=== PATIENT | male | born 1965 | race Hispanic/Latino ===

== ENCOUNTER 2017-07-30 18:51 | Emergency (ER) | payer OTHER ==
[2017-07-30] MEDS ORDERED: Sodium Chloride 0.9% 1,000 ML IV STA (19:19)
[2017-07-30] MEDS ORDERED: Albuterol 0.083% Inhal Sol (2.5 mg/3 mL) UD INH STA (19:20)
--- NOTE | 2017-07-30 19:24 | ED PDOC ---
HPI: Chest Pain Chief Complaint (Provider): Cough, Body Aches, Chest Tightness History Per: Patient History/Exam Limitations: no limitations Onset/Duration Of Symptoms: Days (x 2) Current Symptoms Are (Timing): Still Present Quality: Tightness <Nick Bright - Last Filed: 07/30/17 20:31> <Keerthi Mar - Last Filed: 07/30/17 22:00> Time Seen by Provider: 07/30/17 19:19 Chief Complaint (Nursing): Flu-like Symptoms Additional Complaint(s): Jeremiah is a 52 y/o male who presents to the ED complaining of cough, body aches , and a low grade temperature for the past 2 days. Patient states that since 11am today, he has also had intermittent chest tightness and is unsure if it is associated with the cough. He denies smoking, but states his brother had an DE at age 49. PMD: Ulysses Blue (Nick Bright) Past Medical History Reviewed: Historical Data, Nursing Documentation, Vital Signs - Medical History PMH: Hyperlipidemia, Kidney Stones - Family History Family History: States: [place] (brother, age 49) - Immunization History Hx Tetanus Toxoid Vaccination: No Hx Influenza Vaccination: No Hx Pneumococcal Vaccination: No <Nick Bright - Last Filed: 07/30/17 20:31> <Keerthi Mar - Last Filed: 07/30/17 22:00> Vital Signs: Last Vital Signs Temp 98.9 F 07/30/17 20:49 Pulse 109 H 07/30/17 20:49 Resp 20 07/30/17 20:49 BP 132/85 07/30/17 20:49 Pulse Ox 97 07/30/17 20:49 - Home Medications Home Medications: Ambulatory Orders Medication Instructions Recorded Lamisil 250 mg PO DAILY 11/15/14 Tamsulosin [Flomax] 0.4 mg PO DAILY #10 cap 11/15/14 oxyCODONE/Acetaminophen [Percocet 1 tab PO Q4 PRN #20 tab 11/15/14 5/325 mg Tab] - Allergies Allergies/Adverse Reactions: Allergies Allergy/AdvReac Type Severity Reaction Status Date / Time ibuprofen Allergy REDNESS Verified 07/30/17 19:06 Review of Systems ROS Statement: Except As Marked, All Systems Reviewed And Found Negative Constitutional: Positive for: Fever (low-grade), Other (body aches) Cardiovascular: Positive for: Chest Pain (tightness) Respiratory: Positive for: Cough <Nick Bright - Last Filed: 07/30/17 20:31> Physical Exam - Reviewed Nursing Documentation Reviewed: Yes Vital Signs Reviewed: Yes - Physical Exam Appears: Positive for: Well, Non-toxic, No Acute Distress Cardiovascular/Chest: Positive for: Regular Rate, Rhythm Respiratory: Positive for: CNT, Normal Breath Sounds Neurologic/Psych: Positive for: Alert, Oriented <Nick Bright - Last Filed: 07/30/17 20:31> - Laboratory Results Result Diagrams: 07/30/17 19:58 07/30/17 19:58 - ECG ECG: Positive for: Interpreted By Me, Viewed By Me ECG Rhythm: Positive for: Sinus Tachycardia. Negative for: ST/T Changes Rate: 104 (bpm) O2 Sat by Pulse Oximetry: 98 (RA) Pulse Ox Interpretation: Normal <Nick Bright - Last Filed: 07/30/17 20:31> - Laboratory Results Result Diagrams: 07/30/17 19:58 07/30/17 19:58 <Keerthi Mar - Last Filed: 07/30/17 22:00> - ECG Interpretation Of ECG: no ectopy (Nick Bright) - Progress ED Course And Treament: ASA 324 mg x 1 dose ordered Case endorsed to Dr. Mar (Nick Bright) Medical Decision Making <Nick Bright - Last Filed: 07/30/17 20:31> <Keerthi Mar - Last Filed: 07/30/17 22:00> Medical Decision Making: Time: 19:19 Initial Impression: Flu-Like Symptoms, Chest Tightness Initial Plan: --EKG --CMP --Troponin --CBC --Chest XR --Albuterol --Aspirin --Tamiflu --Flu Swab Time: 19:30 --EKG sinus tachycardia at 104 bpm, no ectopy, no acute changes --Case discussed with Dr. Mar who agrees with plan to put patient on a heart monitor Flu Swab: Negative Scribe Attestation: Documented by Iain Ornelas, acting as a scribe for Nick Bright PA-C Provider Scribe Attestation: All medical record entries made by the Scribe were at my direction and personally dictated by me. I have reviewed the chart and agree that the record accurately reflects my personal performance of the history, physical exam, medical decision making, and the department course for this patient. I have also personally directed, reviewed, and agree with the discharge instructions and disposition. (Nick Bright) Rec'd endorsement from Nick Pt with flu-like symptoms pending ER workup EXAM: XR Chest, 2 Views CLINICAL HISTORY: 52 years old, male; Signs and symptoms; Cough; Symptoms not specified; Additional info: Cough/chest joyce TECHNIQUE: Frontal and lateral views of the chest. COMPARISON: No relevant prior studies available. FINDINGS: Lungs: Minimal patchy opacity left lung base. Minimal subsegmental atelectasis/ scarring. Pleural space: No pleural effusion. No pneumothorax. Heart: No cardiomegaly. Mediastinum: Unremarkable. Bones/joints: Mild degenerative changes of spine. No acute fracture. IMPRESSION: 1. Left basilar atelectasis versus early pneumonia. 2. Incidental/non-acute findings are described above. Thank you for allowing us to participate in the care of your patient. Dictated and Authenticated by: Lance Whiteside MD 07/30/2017 9:27 PM Eastern Time ([place] & [place]) Labs unremarkable. (Keerthi Mar) Disposition - Patient ED Disposition Is Patient to be Admitted: Transfer of Care - Disposition Disposition: Transfer of Care Disposition Time: 19:30 Patient Signed Over To: Keerthi Mar Handoff Comments: pending bloodwork/cxr/flu swab results <Nick Bright - Last Filed: 07/30/17 20:31> <Keerthi Mar - Last Filed: 07/30/17 22:00> - Clinical Impression Clinical Impression: Influenza-like symptoms, Chest pain - Disposition Condition: FAIR Forms: [facility] (Emirati)
[2017-07-30] MEDS ORDERED: Albuterol 0.083% Inhal Sol (2.5 mg/3 mL) UD ONE (19:38)
[2017-07-30 20:03] LABS: BASO # 0.1 K/uL (0.0-0.2); BASO % 0.9 % (0.0-2.0); EOS # 0.3 K/uL (0.0-0.7); HEMOGLOBIN 14.4 g/dL (12.0-18.0); LYMPH # 1.8 K/uL (1.0-4.3); LYMPH % 25.3 % (20.0-40.0); MEAN CELL VOLUME 86.7 fl (80.0-94.0); MEAN CORPUSCULAR HEMOGLOBIN 28.9 pg (27.0-31.0); MEAN CORPUSCULAR HGB CONC 33.3 g/dL (33.0-37.0); MEAN PLATELET VOLUME 6.5 fl (7.2-11.7); MONO # 1.1 K/uL (0.0-0.8); MONO % 15.8 % (0.0-10.0); NEUT # 3.8 K/uL (1.8-7.0); RBC 4.99 Mil/uL (4.40-5.90); RED CELL DISTRIBUTION WIDTH 13.5 % (11.5-14.5)
[2017-07-30 20:17] LABS: ALB/GLOB RATIO 1.4 (1.0-2.1); ALBUMIN 4.5 g/dL (3.5-5.0); ALT/SGPT 36 U/L (21-72); AST/SGOT 31 U/L (17-59); BLOOD UREA NITROGEN 17 mg/dl (9-20); CALCIUM 9.3 mg/dL (8.4-10.2); GFR AFRICAN-AMERICAN > 60; GFR NON-AFRICAN AMERICAN > 60
[2017-07-30 20:50] VITALS: BP 132/85; PULSE 109; RESP 20; TEMP 98.9; O2SAT 97
--- NOTE | 2017-07-30 21:28 | RAD ---
EXAM: XR Chest, 2 Views CLINICAL HISTORY: 52 years old, male; Signs and symptoms; Cough; Symptoms not specified; Additional info: Cough/chest joyce TECHNIQUE: Frontal and lateral views of the chest. COMPARISON: No relevant prior studies available. FINDINGS: Lungs: Minimal patchy opacity left lung base. Minimal subsegmental atelectasis/scarring. Pleural space: No pleural effusion. No pneumothorax. Heart: No cardiomegaly. Mediastinum: Unremarkable. Bones/joints: Mild degenerative changes of spine. No acute fracture. IMPRESSION: 1. Left basilar atelectasis versus early pneumonia. 2. Incidental/non-acute findings are described above.
[2017-07-30] MEDS ORDERED: levoFLOXacin 750 mg in D5W 150 ML BAG IVPB STA (22:00)
--- NOTE | 2017-07-31 10:47 | CARD ---
APPROVED REPORT EKG Measurement Heart [id number] <Conclusion> Sinus tachycardia Otherwise normal ECG
== END 2017-07-30 23:57 | disposition home or self-care (01) ==
LOC: H.ER 18:51
DX: R07.89 Other chest pain (principal); R05 Cough; E78.5 Hyperlipidemia, unspecified; Z82.49 Family history of ischemic heart disease and other diseases of the circulatory system
CPT/HCPCS: 71046; 80053; 84484; 85025; 87804; 93005; 94150; 94640; 96365; 99284; J7040

== ENCOUNTER 2017-11-19 21:55 | Emergency (ER) | payer OTHER ==
--- NOTE | 2017-11-19 23:47 | ED PDOC ---
Lower Extremity Pain/Injury Time Seen by Provider: 11/19/17 22:25 Chief Complaint (Nursing): Lower Extremity Problem/Injury Chief Complaint (Provider): Knee Pain History Per: Patient History/Exam Limitations: no limitations Onset/Duration Of Symptoms: Hrs (x6) Current Symptoms Are (Timing): Still Present Severity: Moderate Pain Scale Rating Of: 7 Additional Complaint(s): Patient is a 52 year old male who presents to ED for evaluation of atraumatic right knee pain for the past 6 hours. Patient states that he was seated at work and went to stand up when he felt a sudden onset of pain to the inside of the right knee. Patient states since onset, he has had swelling to the knee and difficulty ambulating. Patient denies any history of knee injury and denies hearing a "pop". Patient took no medication prior to arrival in ED. Patient denies any history of knee injury, personal or family history of DVT, gout, or falls. Also denies: fever, abdominal pain, nausea, vomiting, chest pain, SOB, palpitations, headache, dizziness, weakness/numbness, calf pain. Patient reports a recent flight from [place] on 11/15/17. PMD: Mirza Past Medical History Reviewed: Historical Data, Nursing Documentation, Vital Signs Vital Signs: Last Vital Signs Temp 98.5 F 11/19/17 22:21 Pulse 98 H 11/19/17 22:21 Resp 16 11/19/17 22:21 BP 123/83 11/19/17 22:21 Pulse Ox 98 11/19/17 22:21 - Medical History PMH: Hyperlipidemia, Kidney Stones - Surgical History Surgical History: Cholecystectomy - Family History Family History: States: [place] (brother, age 49) - Social History Current smoker - smoking cessation education provided: No Alcohol: None Drugs: Denies - Home Medications Home Medications: Ambulatory Orders Medication Instructions Recorded Lamisil 250 mg PO DAILY 11/15/14 Tamsulosin [Flomax] 0.4 mg PO DAILY #10 cap 11/15/14 oxyCODONE/Acetaminophen [Percocet 1 tab PO Q4 PRN #20 tab 11/15/14 5/325 mg Tab] Oseltamivir [Tamiflu] 75 mg PO BID #10 cap 07/30/17 levoFLOXacin [Levaquin] 750 mg PO DAILY #4 tab 07/30/17 Acetaminophen [Acetaminophen 8 650 mg PO Q8 #24 tablet.er 11/20/17 Hour] - Allergies Allergies/Adverse Reactions: Allergies Allergy/AdvReac Type Severity Reaction Status Date / Time ibuprofen Allergy REDNESS Verified 07/30/17 19:06 Physical Exam - Reviewed Nursing Documentation Reviewed: Yes Vital Signs Reviewed: Yes - Physical Exam Appears: Positive for: Well, Non-toxic, No Acute Distress Head Exam: Positive for: ATRAUMATIC, NORMOCEPHALIC Skin: Positive for: Normal Color, Warm, Dry Eye Exam: Positive for: EOMI, PERRL ENT: Positive for: Other (Mucus membranes moist. Airway patent (-) stridor.) Neck: Positive for: Painless ROM, Supple Cardiovascular/Chest: Positive for: Regular Rate, Rhythm Respiratory: Positive for: Normal Breath Sounds. Negative for: Decreased Breath Sounds, Accessory Muscle Use, Respiratory Distress Gastrointestinal/Abdominal: Positive for: Soft. Negative for: Tenderness, Distended, Guarding Extremity: Positive for: Tenderness (to medial aspect of right knee), Swelling ( small effusion to right knee), Other ((-) instability on valgus or varus stress (-) anterior and posterior drawer sign. Sensation intact. (-) distal NV deficit) . Negative for: Normal ROM (decreased flexion secondary to pain, otherwise ROM intact. ), Pedal Edema, Calf Tenderness (palpable cord, warmth, or erythema), Deformity (or skin break) Neurologic/Psych: Positive for: Alert, Oriented (x3), Gait (ambulatory with limp in ED). Negative for: Aphasia, Facial Droop - ECG O2 Sat by Pulse Oximetry: 98 (RA) Pulse Ox Interpretation: Normal Medical Decision Making Medical Decision Making: Initial Impression: Acute knee pain Plan: -D dimer -Knee XR -Tramadol 100mg PO (Patient is not driving home) -Re-evaluation 2350 D-Dimer: 135 Knee XR: (+) DJD (-) fracture (-) dislocation Patient advised that official radiology read of XR is still pending and will call the patient if there is any discrepancy within 24 hours. Ziggy wrap applied to knee. NV intact after placement. Patient declined crutches at this time. 0000 On re-evaluation, patient reports improvement of symptoms. On exam, patient remains AAOx3, in no acute distress. On exam, neck is supple, lungs CTA, cardiac RRR, abdomen is soft and non-tender, neuro exam shows no focal findings. Vitals stable, stable for discharge. RICE encouraged. Diagnostic results d/w the patient in great detail. Dx of acute knee pain/ effusion, likely osteoarthritis d/w the patient. Based on history, exam and diagnostic results plan will be for discharge and outpatient ortho follow up. Advised to follow up with primary care physician in 1-2 days without fail. Advised to take medication as prescribed. Return to the emergency room at any time for any new or worsening symptoms. Patient states he fully agrees with and understands discharge instructions. States that he agrees with the plan and disposition. Verbalized and repeated discharge instructions and plan. I have given the patient opportunity to ask any additional questions. Disposition - Clinical Impression Clinical Impression: Knee pain, Knee effusion, Osteoarthritis - Patient ED Disposition Is Patient to be Admitted: No Counseled Patient/Family Regarding: Studies Performed, Diagnosis, Need For Followup, Rx Given - Disposition Referrals: José Serrano MD [Staff Provider] - Disposition: Routine/Home Disposition Time: 00:30 Condition: STABLE Additional Instructions: FOLLOW UP WITH PMD/ORTHO IN 1-2 DAYS FOR FURTHER EVALUATION. REFERRAL FOR ORTHO PROVIDED. TAKE MEDICATION PRESCRIBED. RETURN TO ED WITH ANY NEW OR WORSENING SYMPTOMS. REST ICE COMPRESS (BANDAGE) ELEVATE Prescriptions: Acetaminophen [Acetaminophen 8 Hour] 650 mg PO Q8 #24 tablet.er Instructions: Osteoarthritis, Knee Pain Forms: [facility] (Kenyan) Print Language: [place] ISLAND[place] - POA Present On Arrival: None Results - Lab Results Lab Results: 11/19/17 23:26 D-Dimer, Quantitative 135
[2017-11-20] MEDS ORDERED: Oxycodone/Acetaminophen 5/325 mg Tab PO STA (00:02)
[2017-11-20 00:59] VITALS: BP 110/78; PULSE 78; RESP 18; TEMP 98; O2SAT 100
--- NOTE | 2017-11-20 09:20 | RAD ---
PROCEDURE: Right Knee Radiographs. HISTORY: joint pain COMPARISON: None. FINDINGS: BONES: Normal. No fracture. JOINTS: Mild osteoarthritic changes. JOINT EFFUSION: None. OTHER FINDINGS: None. IMPRESSION: Mild osteoarthritic changes.
== END 2017-11-20 00:59 | disposition home or self-care (01) ==
LOC: H.ER 21:55
DX: M25.561 Pain in right knee (principal); M25.461 Effusion, right knee; M17.11 Unilateral primary osteoarthritis, right knee; Z87.442 Personal history of urinary calculi; E78.5 Hyperlipidemia, unspecified

== ENCOUNTER 2017-11-20 10:49 | Inpatient (IN) | payer OTHER ==
[2017-11-20] MEDS ORDERED: Sodium Chloride 0.9% 1,000 ML IV STA (11:23)
[2017-11-20 11:36] LABS: BASO # 0.1 K/uL (0.0-0.2); BASO % 0.9 % (0.0-2.0); EOS # 0.3 K/uL (0.0-0.7); EOS % 3.7 % (0.0-4.0); HEMOGLOBIN 14.2 g/dL (12.0-18.0); LYMPH # 2.1 K/uL (1.0-4.3); LYMPH % 25.4 % (20.0-40.0); MEAN CELL VOLUME 86.3 fl (80.0-94.0); MEAN CORPUSCULAR HEMOGLOBIN 29.9 pg (27.0-31.0); MEAN CORPUSCULAR HGB CONC 34.7 g/dL (33.0-37.0); MEAN PLATELET VOLUME 6.6 fl (7.2-11.7); MONO # 0.5 K/uL (0.0-0.8); MONO % 6.6 % (0.0-10.0); NEUT # 5.2 K/uL (1.8-7.0); NEUT % 63.4 % (50.0-75.0); NRBC % 0.1 % (0.0-0.0); RBC 4.74 Mil/uL (4.40-5.90); RED CELL DISTRIBUTION WIDTH 13.4 % (11.5-14.5); WHITE BLOOD COUNT 8.2 K/uL (4.8-10.8)
--- NOTE | 2017-11-20 11:37 | ED PDOC ---
HPI: Abdomen Time Seen by Provider: 11/20/17 10:54 Chief Complaint (Nursing): Abdominal Pain Chief Complaint (Provider): Abdominal Pain History Per: Patient History/Exam Limitations: no limitations Onset/Duration Of Symptoms: Days (x1) Current Symptoms Are (Timing): Still Present Associated Symptoms: Nausea, Vomiting. denies: Diarrhea Additional Complaint(s): 52 year old male presents to the ED complaining of abdominal pain associated with nausea, vomiting, and headache, onset one day. Patient reports he has a history of migraines but has never been prescribed medication to treat it. Patient was seen here in the ED yesterday for right knee pain. Denies diarrhea. PMD: Ulysses Gilmore Past Medical History Reviewed: Historical Data, Nursing Documentation, Vital Signs Vital Signs: Last Vital Signs Temp 98.3 F 11/24/17 09:00 Pulse 72 11/24/17 09:00 Resp 20 11/24/17 09:00 BP 116/75 11/24/17 09:00 Pulse Ox 95 11/24/17 09:00 - Medical History PMH: Hyperlipidemia, Kidney Stones, Migraine - Surgical History Surgical History: Cholecystectomy - Family History Family History: States: [place] (brother, age 49) - Immunization History Hx Tetanus Toxoid Vaccination: No Hx Influenza Vaccination: No Hx Pneumococcal Vaccination: No - Home Medications Home Medications: Ambulatory Orders Medication Instructions Recorded Acetaminophen [Acetaminophen 8 650 mg PO Q8 #24 tablet.er 11/20/17 Hour] Ciprofloxacin HCl [Cipro] 500 mg PO BID #20 tablet 11/23/17 Famotidine [Pepcid] 40 mg PO DAILY #30 tablet 11/23/17 Lactobacillus Acidophilus [Bacid 1 cap PO BID cap 11/23/17 Acidophilus] Metronidazole [Flagyl] 500 mg PO TID #30 tablet 11/23/17 - Allergies Allergies/Adverse Reactions: Allergies Allergy/AdvReac Type Severity Reaction Status Date / Time ibuprofen Allergy REDNESS Verified 07/30/17 19:06 Review of Systems ROS Statement: Except As Marked, All Systems Reviewed And Found Negative Gastrointestinal: Positive for: Nausea, Vomiting, Abdominal Pain. Negative for : Diarrhea Neurological: Positive for: Headache Physical Exam - Reviewed Nursing Documentation Reviewed: Yes Vital Signs Reviewed: Yes - Physical Exam Appears: Positive for: Non-toxic, No Acute Distress Head Exam: Positive for: ATRAUMATIC, NORMOCEPHALIC Skin: Positive for: Normal Color, Warm, Dry Eye Exam: Positive for: Normal appearance, EOMI, PERRL ENT: Positive for: Normal ENT Inspection Neck: Positive for: Normal, Painless ROM, Supple Cardiovascular/Chest: Positive for: Regular Rate, Rhythm. Negative for: Murmur Respiratory: Positive for: Normal Breath Sounds. Negative for: Respiratory Distress Gastrointestinal/Abdominal: Positive for: Normal Exam, Tenderness (epigastric right upper quadrant tenderness ). Negative for: Guarding, Rebound Back: Positive for: Normal Inspection Extremity: Positive for: Normal ROM. Negative for: Pedal Edema, Deformity Neurologic/Psych: Positive for: Alert, Oriented. Negative for: Motor/Sensory Deficits - Laboratory Results Result Diagrams: 11/22/17 08:12 11/22/17 08:12 - ECG O2 Sat by Pulse Oximetry: 96 (RA) Pulse Ox Interpretation: Normal Medical Decision Making Medical Decision Making: Time: 1126 Impression: Abdominal pain and headache Differentials include but not limited to gastroenteritis, gastritis, headache Plan: -- Head CT w/o contrast -- Abd/Pelvis CT w/ IV contrast -- EKG -- Alcohol Serum -- CMP -- Urine Drug Screen -- Lipase -- ED Urine Dipstick -- CBC with differentials -- PTT -- Prothrombin Time -- Glucose, POC -- Morphine 2 mg IV -- Sodium Chlorine IV 1000 mls/hr -- Zofram 4 mg PO -- Urinalysis Time: [address] RESULTS FINDINGS: HEMORRHAGE: No intracranial hemorrhage. BRAIN: No mass effect or edema. No atrophy or chronic microvascular ischemic changes. VENTRICLES: Unremarkable. No hydrocephalus. CALVARIUM: Unremarkable. PARANASAL SINUSES: Unremarkable as visualized. No significant inflammatory changes. MASTOID AIR CELLS: Unremarkable as visualized. No inflammatory changes. OTHER FINDINGS: None. IMPRESSION: Normal CT of the Head. Time: 1256 ABD/PELVIS CT RESULTS FINDINGS: LOWER THORAX: Minimal bibasilar atelectasis noted. No evidence of pleural effusion. The heart is normal in size. LIVER: Mild hepatomegaly with [id number] diffuse low-attenuation of the liver noted suggestive of hepatic steatosis. The portal vein is patent GALLBLADDER AND BILE DUCTS: Status post prior cholecystectomy. The common bile duct is normal in caliber. PANCREAS: Unremarkable. No gross lesion or ductal dilatation. SPLEEN: Unremarkable. ADRENALS: Unremarkable. No mass. KIDNEYS AND URETERS: Slightly dilated right kidney collecting system noted without evidence of obstructing stone. The kidneys enhance symmetrically otherwise. There is low- attenuation cyst at the midpole left kidney measures 1.2 centimeter. VASCULATURE: Unremarkable. No aortic aneurysm. BOWEL: There is segmental wall thickening noted in the ascending colon extending to the hepatic flexure may represent colitis. Few scattered colonic diverticulosis seen without evidence of diverticulitis. No evidence of bowel obstruction. The stomach is not distended. APPENDIX: No evidence of appendicitis. The appendix is not clearly visualized. PERITONEUM: Unremarkable. No free fluid. No free air. LYMPH NODES: Unremarkable. No enlarged lymph nodes. BLADDER: Unremarkable. REPRODUCTIVE: The prostate is mildly enlarged. BONES: No evidence of acute pathology in the osseous structures. OTHER FINDINGS: There is asymmetrical enhancement of the right common femoral external iliac and common iliac veins with no opacification of the left-sided pelvic veins. Findings are nonspecific and of uncertain etiology. IMPRESSION: Segmental wall thickening of the right colon suspicious for colitis. Please correlate clinically. The differential consideration includes ischemic colitis infection or inflammatory colitis. Mild hepatomegaly and [id number] hepatic steatosis. Scribe Attestation: Documented by Sally Salazar, acting as a scribe for Dr. Shante Carrington MD. Provider Scribe Attestation: All medical record entries made by the Scribe were at my direction and personally dictated by me. I have reviewed the chart and agree that the record accurately reflects my personal performance of the history, physical exam, medical decision making, and the department course for this patient. I have also personally directed, reviewed, and agree with the discharge instructions and disposition. Disposition - Clinical Impression Clinical Impression: Near syncope, Colitis, Headache - Disposition Disposition Time: 14:43 Condition: STABLE - Pt Status Changed To: Hospital Disposition Of: Observation - POA Present On Arrival: None
[2017-11-20] MEDS ORDERED: Sodium Chloride 0.9% 50 ML IV ONE (11:42)
[2017-11-20] MEDS ORDERED: Iohexol 300 100 ML IJ ONE (11:42)
[2017-11-20 11:53] LABS: ALB/GLOB RATIO 1.2 (1.0-2.1); ALT/SGPT 32 U/L (21-72); AST/SGOT 29 U/L (17-59); BLOOD UREA NITROGEN 18 mg/dl (9-20); CALCIUM 8.9 mg/dL (8.4-10.2); GFR AFRICAN-AMERICAN > 60; GFR NON-AFRICAN AMERICAN > 60; LIPASE 46 U/L (23-300)
[2017-11-20 12:04] LABS: INR 1.1 (0.9-1.2); PARTIAL THROMBOPLASTIN TIME 28.6 Seconds (25.6-37.1); PROTHROMBIN TIME 12.1 Seconds (9.8-13.1)
--- NOTE | 2017-11-20 12:42 | CT ---
PROCEDURE: CT HEAD WITHOUT CONTRAST. HISTORY: RYAN COMPARISON: None available. TECHNIQUE: Axial computed tomography images were obtained through the head/brain without intravenous contrast. Radiation dose: Total exam DLP = 910.61 mGy-cm. This CT exam was performed using one or more of the following dose reduction techniques: Automated exposure control, adjustment of the mA and/or kV according to patient size, and/or use of iterative reconstruction technique. FINDINGS: HEMORRHAGE: No intracranial hemorrhage. BRAIN: No mass effect or edema. No atrophy or chronic microvascular ischemic changes. VENTRICLES: Unremarkable. No hydrocephalus. CALVARIUM: Unremarkable. PARANASAL SINUSES: Unremarkable as visualized. No significant inflammatory changes. MASTOID AIR CELLS: Unremarkable as visualized. No inflammatory changes. OTHER FINDINGS: None. IMPRESSION: Normal CT of the Head.
--- NOTE | 2017-11-20 12:58 | CT ---
PROCEDURE: CT Abdomen and Pelvis with contrast HISTORY: Upper abd pain COMPARISON: None. TECHNIQUE: Contrast dose: 100 cc Omnipaque 300. Axial and reformatted coronal and sagittal CT images of the abdomen and pelvis were obtained after IV contrast administration. Radiation dose: Total exam DLP = 1295.45 mGy-cm. This CT exam was performed using one or more of the following dose reduction techniques: Automated exposure control, adjustment of the mA and/or kV according to patient size, and/or use of iterative reconstruction technique. FINDINGS: LOWER THORAX: Minimal bibasilar atelectasis noted. No evidence of pleural effusion. The heart is normal in size. LIVER: Mild hepatomegaly with [id number] diffuse low-attenuation of the liver noted suggestive of hepatic steatosis. The portal vein is patent GALLBLADDER AND BILE DUCTS: Status post prior cholecystectomy. The common bile duct is normal in caliber. PANCREAS: Unremarkable. No gross lesion or ductal dilatation. SPLEEN: Unremarkable. ADRENALS: Unremarkable. No mass. KIDNEYS AND URETERS: Slightly dilated right kidney collecting system noted without evidence of obstructing stone. The kidneys enhance symmetrically otherwise. There is low-attenuation cyst at the midpole left kidney measures 1.2 centimeter. VASCULATURE: Unremarkable. No aortic aneurysm. BOWEL: There is segmental wall thickening noted in the ascending colon extending to the hepatic flexure may represent colitis. Few scattered colonic diverticulosis seen without evidence of diverticulitis. No evidence of bowel obstruction. The stomach is not distended. APPENDIX: No evidence of appendicitis. The appendix is not clearly visualized. PERITONEUM: Unremarkable. No free fluid. No free air. LYMPH NODES: Unremarkable. No enlarged lymph nodes. BLADDER: Unremarkable. REPRODUCTIVE: The prostate is mildly enlarged. BONES: No evidence of acute pathology in the osseous structures. OTHER FINDINGS: There is asymmetrical enhancement of the right common femoral external iliac and common iliac veins with no opacification of the left-sided pelvic veins. Findings are nonspecific and of uncertain etiology. IMPRESSION: Segmental wall thickening of the right colon suspicious for colitis. Please correlate clinically. The differential consideration includes ischemic colitis infection or inflammatory colitis. Mild hepatomegaly and [id number] hepatic steatosis.
[2017-11-20] MEDS ORDERED: metroNIDAZOLE 500mg/100ml NS 100 ML IV STA (12:59)
[2017-11-20] MEDS ORDERED: Ciprofloxacin 400mg/200ml D5W 400 MG/200 ML BAG IV STA (12:59)
[2017-11-20] MEDS ORDERED: Famotidine 20mg/50ml Premix IVPB STA (13:15)
[2017-11-20] MEDS ORDERED: Ciprofloxacin 400mg/200ml D5W 400 MG/200 ML BAG IVPB ONE (13:21)
[2017-11-20] MEDS ORDERED: Famotidine 20mg/50ml 20 MG/50 ML BAG IVPB ONE (13:21)
[2017-11-20] MEDS ORDERED: metroNIDAZOLE 500mg/100ml NS 100 ML IVPB ONE (14:23)
--- NOTE | 2017-11-20 15:57 | US ---
PROCEDURE: Right lower extremity venous duplex Doppler. HISTORY: RLE pain COMPARISON: None available. TECHNIQUE: Common femoral, superficial femoral, popliteal and posterior tibial veins were evaluated. Flow was assessed with color Doppler, compressibility, assessment of phasic flow and augmentation response. FINDINGS: COMMON FEMORAL VEIN: Unremarkable. SUPERFICIAL FEMORAL VEIN: Unremarkable. POPLITEAL VEIN: Unremarkable. POSTERIOR TIBIAL VEIN: Unremarkable. OTHER FINDINGS: None. IMPRESSION: No evidence of deep venous thrombosis in the right lower extremity.
[2017-11-20] MEDS: metroNIDAZOLE 500mg/100ml NS 100 ML IVPB SCH (17:21)
[2017-11-20] MEDS: Dextrose 5%/Lactated Ringer's 1,000 ML IV SCH (17:22)
[2017-11-20 19:03] LABS: URINE BILIRUBIN NEGATIVE (NEGATIVE); URINE BLOOD NEGATIVE (NEGATIVE); URINE CLARITY CLEAR (Clear); URINE COLOR YELLOW (YELLOW); URINE GLUCOSE (UA) NEG (Normal); URINE LEUKOCYTE ESTERASE NEG Leu/uL (Negative); URINE PROTEIN NEGATIVE (NEGATIVE); URINE UROBILINOGEN 0.2-1.0 mg/dL (0.2-1.0)
[2017-11-20 20:10] LABS: BARBITURATES, UR NEGATIVE (NEGATIVE); BENZODIAZEPINES, UR NEGATIVE (NEGATIVE); OPIATES, UR POSITIVE (NEGATIVE); PHENCYCLIDINE, UR NEGATIVE (NEGATIVE)
[2017-11-20] MEDS: Ciprofloxacin 400mg/200ml D5W 400 MG/200 ML BAG IVPB SCH (21:07)
[2017-11-21] MEDS: metroNIDAZOLE 500mg/100ml NS 100 ML IVPB SCH ×3 (00:13→17:21)
[2017-11-21] MEDS: Dextrose 5%/Lactated Ringer's 1,000 ML IV SCH ×3 (03:47→19:49)
[2017-11-21 06:17] LABS: HEMOGLOBIN 13.9 g/dL (12.0-18.0); MEAN CELL VOLUME 86.7 fl (80.0-94.0); MEAN CORPUSCULAR HEMOGLOBIN 29.6 pg (27.0-31.0); MEAN CORPUSCULAR HGB CONC 34.2 g/dL (33.0-37.0); RBC 4.68 Mil/uL (4.40-5.90); RED CELL DISTRIBUTION WIDTH 13.6 % (11.5-14.5); WHITE BLOOD COUNT 9.3 K/uL (4.8-10.8)
[2017-11-21 06:23] LABS: ALB/GLOB RATIO 1.2 (1.0-2.1); ALBUMIN 3.6 g/dL (3.5-5.0); ALT/SGPT 35 U/L (21-72); AST/SGOT 28 U/L (17-59); BLOOD UREA NITROGEN 14 mg/dl (9-20); CALCIUM 8.9 mg/dL (8.4-10.2); GFR AFRICAN-AMERICAN > 60; GFR NON-AFRICAN AMERICAN > 60
[2017-11-21] MEDS: Famotidine 20mg/50ml 40 MG/100 ML BAG IVPB SCH (08:32)
[2017-11-21] MEDS: Ciprofloxacin 400mg/200ml D5W 400 MG/200 ML BAG IVPB SCH ×2 (08:35→20:04)
--- NOTE | 2017-11-21 14:21 | CARD ---
APPROVED REPORT EKG Measurement Heart [id number] <Conclusion> Normal sinus rhythm Normal ECG
[2017-11-21] MEDS ORDERED: Dextrose 5%/Lactated Ringer's 1,000 ML IV SCH (19:15)
[2017-11-22] MEDS: metroNIDAZOLE 500mg/100ml NS 100 ML IVPB SCH ×3 (00:06→16:37)
[2017-11-22] MEDS: Dextrose 5%/Lactated Ringer's 1,000 ML IV SCH ×2 (04:42→16:36)
--- NOTE | 2017-11-22 07:25 | CP.PCM.HP ---
History of Present Illness - History of Present Illness History of Present Illness: This is a 52 y/o male with no significant medical hx admitted for acute progressive worsening of abdominal pain initially periumbilical then become RUQ area. He denies any fever. He had no vomiting but has nausea. He denies any medical condition. He denies taking any medication. He denies alcohol or smoking Initial work up showed normal WBC and segmental colitis right side. Present on Admission - Present on Admission Any Indicators Present on Admission: No History of DVT/PE: No History of Uncontrolled Diabetes: No Urinary Catheter: No Decubitus Ulcer Present: No Review of Systems - Gastrointestinal Gastrointestinal: Abdominal Pain Past Patient History - Past Social History Smoking Status: Never Smoked - NEUROLOGICAL Hx Migraine: Yes - RENAL Hx Kidney Stones: Yes - MUSCULOSKELETAL/RHEUMATOLOGICAL Hx Falls: No - PSYCHIATRIC Hx Substance Use: No - SURGICAL HISTORY Hx Cholecystectomy: Yes - ANESTHESIA Hx Anesthesia: No Meds Allergies/Adverse Reactions: Allergies Allergy/AdvReac Type Severity Reaction Status Date / Time ibuprofen Allergy REDNESS Verified 07/30/17 19:06 Physical Exam - Head Exam Head Exam: NORMAL INSPECTION - Eye Exam Eye Exam: Normal appearance - ENT Exam ENT Exam: Mucous Membranes Moist - Respiratory Exam Respiratory Exam: Clear to Auscultation Bilateral - Cardiovascular Exam Cardiovascular Exam: REGULAR RHYTHM - GI/Abdominal Exam GI & Abdominal Exam: Hypoactive Bowel Sounds Additional comments: tender RUQ and periumbilical area - Neurological Exam Neurological exam: CN II-XII Intact, Oriented x3 - Psychiatric Exam Psychiatric exam: Normal Mood Results - Vital Signs Recent Vital Signs: Last Vital Signs Temp 97.4 F L 11/22/17 01:00 Pulse 70 11/22/17 00:45 Resp 18 11/22/17 01:00 BP 108/66 11/22/17 01:00 Pulse Ox 97 11/22/17 01:00 - Labs Result Diagrams: 11/21/17 05:55 11/21/17 05:55 Assessment & Plan (1) Colitis Status: Acute (2) Hyperglycemia Status: Acute - Assessment and Plan (Free Text) Plan: IV antibiotics start clear liquids monitor cbc cmp A1c
[2017-11-22 08:21] LABS: BASO % 0.5 % (0.0-2.0); EOS # 0.3 K/uL (0.0-0.7); HEMOGLOBIN 13.8 g/dL (12.0-18.0); LYMPH # 1.8 K/uL (1.0-4.3); LYMPH % 24.6 % (20.0-40.0); MEAN CELL VOLUME 86.3 fl (80.0-94.0); MEAN CORPUSCULAR HEMOGLOBIN 29.7 pg (27.0-31.0); MEAN CORPUSCULAR HGB CONC 34.4 g/dL (33.0-37.0); MEAN PLATELET VOLUME 6.5 fl (7.2-11.7); MONO # 0.6 K/uL (0.0-0.8); MONO % 8.5 % (0.0-10.0); NEUT # 4.4 K/uL (1.8-7.0); NEUT % 62.4 % (50.0-75.0); NRBC % 0.1 % (0.0-0.0); RBC 4.64 Mil/uL (4.40-5.90); RED CELL DISTRIBUTION WIDTH 13.3 % (11.5-14.5); WHITE BLOOD COUNT 7.1 K/uL (4.8-10.8)
[2017-11-22 08:42] LABS: ALB/GLOB RATIO 1.2 (1.0-2.1); ALBUMIN 3.7 g/dL (3.5-5.0); ALT/SGPT 38 U/L (21-72); AST/SGOT 28 U/L (17-59); BLOOD UREA NITROGEN 13 mg/dl (9-20); CALCIUM 8.8 mg/dL (8.4-10.2); GFR AFRICAN-AMERICAN > 60; GFR NON-AFRICAN AMERICAN > 60
[2017-11-22] MEDS: Ciprofloxacin 400mg/200ml D5W 400 MG/200 ML BAG IVPB SCH ×2 (09:01→21:22)
[2017-11-22] MEDS: Famotidine 20mg/50ml 40 MG/100 ML BAG IVPB SCH (09:02)
--- NOTE | 2017-11-22 10:15 | CP.PCM.PN ---
Subjective - Date & Time of Evaluation Date of Evaluation: 11/22/17 Time of Evaluation: 10:13 - Subjective Subjective: Had poor tolerance to clear liquids yesterday Has no fever Still with vague periumbilical pain and tenderness. Has no chest pain or SOB Noted hyperglycemia Noted bilateral trace leg edema with some skin hyperpigmentation Has blood tinged stools today. Objective - Vital Signs/Intake and Output Vital Signs (last 24 hours): Temp Pulse Resp BP Pulse Ox 97.8 F 73 20 125/81 96 11/22/17 08:05 11/22/17 08:05 11/22/17 08:05 11/22/17 08:05 11/22/17 08:05 - Medications Medications: Current Medications Acetaminophen (Tylenol 325mg Tab) 650 mg PO Q4 PRN PRN Reason: Pain, Mild (1-3) Last Admin: 11/22/17 09:09 Dose: 650 mg Metronidazole (Flagyl 500mg/100ml Ns) 100 mls @ 100 mls/hr IVPB Q8 SHEA PRN Reason: Protocol Last Admin: 11/22/17 09:01 Dose: 100 mls/hr Ciprofloxacin (Cipro 400mg/200ml Dsw) 400 mg in 200 mls @ 200 mls/hr IVPB Q12 SHEA PRN Reason: Protocol Last Admin: 11/22/17 09:01 Dose: 200 mls/hr Famotidine (Pepcid 20mg/50ml Premix) 40 mg in 100 mls @ 200 mls/hr IVPB DAILY [facility] Last Admin: 11/22/17 09:02 Dose: 200 mls/hr Dextrose/Lactated Ringer's (Dextrose 5%/Lactated Ringer's) 1,000 mls @ 100 mls/ hr IV .Q10H [facility] Stop: 11/22/17 19:21 Last Admin: 11/22/17 04:42 Dose: 100 mls/hr Morphine Sulfate (Morphine) 1 mg IVP Q4 PRN PRN Reason: Pain, moderate (4-7) Last Admin: 11/21/17 15:29 Dose: 1 mg Ondansetron HCl (Zofran Odt) 4 mg PO Q6H PRN PRN Reason: Nausea/Vomiting Last Admin: 11/22/17 07:21 Dose: 4 mg - Labs Labs: 11/22/17 08:12 11/22/17 08:12 PT 12.1 Seconds (9.8-13.1) 11/20/17 11:26 INR 1.1 (0.9-1.2) 11/20/17 11:26 APTT 28.6 Seconds (25.6-37.1) 11/20/17 11:26 - Head Exam Head Exam: NORMAL INSPECTION - Eye Exam Eye Exam: Normal appearance - ENT Exam ENT Exam: Mucous Membranes Moist - Respiratory Exam Respiratory Exam: Clear to Ausculation Bilateral - Cardiovascular Exam Cardiovascular Exam: REGULAR RHYTHM - GI/Abdominal Exam GI & Abdominal Exam: Tenderness, Normal Bowel Sounds - Neurological Exam Neurological Exam: Awake, Oriented x3 - Psychiatric Exam Psychiatric exam: Normal Mood Assessment and Plan (1) Colitis Status: Acute (2) Hyperglycemia Status: Acute - Assessment and Plan (Free Text) Plan: stool for C diff stool ova parasite check A1c iv zofran clear liquids
--- NOTE | 2017-11-22 13:18 | US ---
PROCEDURE: Duplex ultrasound of the bilateral lower extremity arteries. HISTORY: CLAUDICATION COMPARISON: None available. TECHNIQUE: Grayscale and duplex Doppler evaluation of the bilateral common femoral, superficial femoral, popliteal, posterior tibial and dorsalis pedis arteries was performed. FINDINGS: RIGHT LOWER EXTREMITY: RIGHT COMMON FEMORAL ARTERY: Widely patent. Maximal flow velocity of 72.7 cm/s. RIGHT SUPERFICIAL FEMORAL ARTERY: * Proximal: Widely patent. Maximal flow velocity of 82.2 cm/s. * Mid: Widely patent. Maximal flow velocity of 64.6 cm/s. * Distal: Widely patent. Maximal flow velocity of 67.2 cm/s. RIGHT POPLITEAL ARTERY: Widely patent. Maximal flow velocity of 44.4 cm/s. RIGHT ANTERIOR TIBIAL ARTERY: Widely patent. Maximal flow velocity of 30.1 cm/s. RIGHT POSTERIOR TIBIAL ARTERY: Widely patent. Maximal flow velocity of 40.5 cm/s. RIGHT DORSALIS PEDIS ARTERY: Widely patent. Maximal flow velocity of 58.1 cm/s. LEFT LOWER EXTREMITY: LEFT COMMON FEMORAL ARTERY: Widely patent. Maximal flow velocity of 98.4 cm/s. LEFT SUPERFICIAL FEMORAL ARTERY: * Proximal: Widely patent. Maximal flow velocity of 83.8 cm/s. * Mid: Widely patent. Maximal flow velocity of 87.1 cm/s. * Distal: Widely patent. Maximal flow velocity of 67.7 cm/s. LEFT POPLITEAL ARTERY: Widely patent. Maximal flow velocity of 54.9 cm/s. LEFT ANTERIOR TIBIAL ARTERY: Widely patent. Maximal flow velocity of 27.7 cm/s. LEFT POSTERIOR TIBIAL ARTERY: Widely patent. Maximal flow velocity of 55.2 cm/s. LEFT DORSALIS PEDIS ARTERY: Widely patent. Maximal flow velocity of 27.3 cm/s. OTHER FINDINGS: None. IMPRESSION: Normal Duplex Doppler of the bilateral lower extremity arteries.
[2017-11-23] MEDS: metroNIDAZOLE 500mg/100ml NS 100 ML IVPB SCH ×3 (00:56→16:39)
--- NOTE | 2017-11-23 02:46 | CP.PCM.PCO ---
Physician Communication Note - Physician Communication Note Physician Communication Note: nurse paged: patient w/1 episode of vomiting and continues watery diarrhea Assessment/Plan - Assessment and Plan (Free Text) Assessment: -vitals stable, tolerated some clear liquid earlier Plan: -LR;s 1L at rate of 100cc/hr, zofran PRN - Date & Time Date: 11/23/17 Time: 02:00
[2017-11-23] MEDS: Lactated Ringer's 1,000 ML IV SCH ×3 (02:58→22:47)
[2017-11-23] MEDS: Ciprofloxacin 400mg/200ml D5W 400 MG/200 ML BAG IVPB SCH ×2 (10:00→21:15)
[2017-11-23] MEDS: Famotidine 20mg/50ml 40 MG/100 ML BAG IVPB SCH (11:18)
--- NOTE | 2017-11-23 12:00 | CP.PCM.PN ---
Subjective - Date & Time of Evaluation Date of Evaluation: 11/23/17 Time of Evaluation: 09:20 - Subjective Subjective: Patient seen and examined this morning at bedside w/ Dr. Cabello. There are no acute events overnight, NAD. Patient reports that he still cannot tolerate liquid diet. The patient reports pain the moment he ingests something. Patient is also reporting loose, watery bowel movement. Patient reports nausea controlled w/ medication. Patient denies headaches, chest pain, SOB, dysuria, or fever. Objective - Vital Signs/Intake and Output Vital Signs (last 24 hours): Temp Pulse Resp BP Pulse Ox 97.8 F 64 20 138/96 H 95 11/23/17 08:09 11/23/17 08:09 11/23/17 08:09 11/23/17 08:09 11/23/17 08:09 - Medications Medications: Current Medications Acetaminophen (Tylenol 325mg Tab) 650 mg PO Q4 PRN PRN Reason: Pain, Mild (1-3) Last Admin: 11/22/17 14:55 Dose: 650 mg Metronidazole (Flagyl 500mg/100ml Ns) 100 mls @ 100 mls/hr IVPB Q8 SHEA PRN Reason: Protocol Last Admin: 11/23/17 08:59 Dose: 100 mls/hr Ciprofloxacin (Cipro 400mg/200ml Dsw) 400 mg in 200 mls @ 200 mls/hr IVPB Q12 SHEA PRN Reason: Protocol Last Admin: 11/23/17 10:00 Dose: 200 mls/hr Lactated Ringer's (Lactated Ringer's) 1,000 mls @ 100 mls/hr IV .Q10H [facility] Last Admin: 11/23/17 02:58 Dose: 100 mls/hr Morphine Sulfate (Morphine) 1 mg IVP Q4 PRN PRN Reason: Pain, moderate (4-7) Last Admin: 11/21/17 15:29 Dose: 1 mg Ondansetron HCl (Zofran Odt) 4 mg PO Q6H PRN PRN Reason: Nausea/Vomiting Last Admin: 11/22/17 22:40 Dose: 4 mg Pantoprazole Sodium (Protonix Inj) 40 mg IVP DAILY [facility] Sucralfate (Carafate Tab) 1 gm PO QID [facility] - Labs Labs: 11/22/17 08:12 11/22/17 08:12 PT 12.1 Seconds (9.8-13.1) 11/20/17 11:26 INR 1.1 (0.9-1.2) 11/20/17 11:26 APTT 28.6 Seconds (25.6-37.1) 11/20/17 11:26 - Constitutional Appears: Non-toxic, No Acute Distress - Head Exam Head Exam: ATRAUMATIC, NORMAL INSPECTION, NORMOCEPHALIC - Eye Exam Eye Exam: Normal appearance - ENT Exam ENT Exam: Mucous Membranes Moist - Neck Exam Neck Exam: Full ROM. absent: Tenderness - Respiratory Exam Respiratory Exam: Clear to Ausculation Bilateral. absent: Accessory Muscle Use , Decreased Breath Sounds, Rales, Rhonchi, Wheezes, Respiratory Distress - Cardiovascular Exam Cardiovascular Exam: REGULAR RHYTHM, RRR. absent: Tachycardia, Murmur - GI/Abdominal Exam GI & Abdominal Exam: Soft, Tenderness (periumbilical/epigastric), Normal Bowel Sounds. absent: Distended - Extremities Exam Extremities Exam: Normal Inspection. absent: Calf Tenderness - Neurological Exam Neurological Exam: Alert, Awake, Normal Gait, Oriented x3 - Skin Skin Exam: Dry, Intact, Normal Color, Warm Assessment and Plan (1) Colitis Status: Acute - Assessment and Plan (Free Text) Plan: c/w present management afebrile, non-tachycardic, normotensive GI consult ordered C. diff negative metronidazole 500 mg IV Q8h day 3 ciprofloxacin 400 mg IV day 4 protonix 40 mg IV daily carafate 1 mg PO Q6h start pro-biotic f/u H. pylori stool Ag prophylactic measures: DVT SCDs monitor for acute changes
[2017-11-23] MEDS ORDERED: Lactated Ringer's 500 ML IV ONE (13:00)
[2017-11-23] MEDS ORDERED: Propofol 10 mg/ml Inj (20 ML) ONE (13:13)
[2017-11-23] MEDS: Lactobacillus Acidophilus 500 MU Cap PO SCH (17:24)
[2017-11-24] MEDS: metroNIDAZOLE 500mg/100ml NS 100 ML IVPB SCH ×2 (00:29→09:07)
[2017-11-24] MEDS: Lactated Ringer's 1,000 ML IV SCH ×2 (02:36→10:17)
[2017-11-24 08:28] VITALS: BP 116/75; PULSE 72; RESP 20; TEMP 98.3
--- NOTE | 2017-11-24 08:46 | CON ---
DATE: 11/23/2017 REFERRING DOCTOR: Prasad Cabello MD REASON FOR CONSULTATION: Abdominal pain. HISTORY OF PRESENT ILLNESS: This is a 52-year-old man with past medical history of exploratory laparoscopy for abdominal pain, discomfort and diarrhea, basically had feels better, lying comfortable, in no apparent distress, unable to tolerate p.o. PAST MEDICAL HISTORY: As above. PAST SURGICAL HISTORY: As above. MEDICATIONS: Reviewed. REVIEW OF SYSTEMS: All other systems have been reviewed and negative apart from the HPI. PHYSICAL EXAMINATION: VITAL SIGNS: Here in the hospital, grossly unremarkable. GENERAL: This is a pleasant middle age male lying comfortable in no apparent distress. HEENT: Head is normocephalic, atraumatic. Eyes, pupils are equally reactive to light bilaterally. No conjunctival pallor or icterus. NECK: Supple. Normal range of motion. No lymphadenopathy appreciated. LUNGS: Coarse breath sounds bilaterally. HEART: S1 and S2, regular rate and rhythm, no murmurs or gallops. ABDOMEN: Soft, . No rebound. No guarding. RECTAL: Deferred. EXTREMITIES: Pulses present bilaterally. SKIN: Warm, dry and intact. NEUROLOGIC: A and O x3. LABORATORY DATA: Labs and radiology have been reviewed. Labs include right-sided colitis. Labs include WBC of 7.1 and 13.8 of hemoglobin. LFTs are essentially unremarkable. ASSESSMENT AND PLAN: This is a 52-year-old male with colitis . Thank you for the consultation. Jamie Telles MD/ PhD cc: Prasad Cabello MD
[2017-11-24] MEDS ORDERED: Famotidine 20mg/50ml 40 MG/100 ML BAG IVPB SCH (09:00)
[2017-11-24] MEDS: Lactobacillus Acidophilus 500 MU Cap PO SCH (09:05)
[2017-11-24] MEDS: Ciprofloxacin 400mg/200ml D5W 400 MG/200 ML BAG IVPB SCH (09:07)
--- NOTE | 2017-11-24 10:51 | CP.PCM.PN ---
Subjective - Date & Time of Evaluation Date of Evaluation: 11/24/17 Time of Evaluation: 10:46 - Subjective Subjective: Gastroenterology Fellow/PGY5 Progress Note for Dr. Telles Patient notes improving abdominal pain. Tolerating regular diet. Feels well post - EGD yesterday. A 12-point review of systems negative except for as above. Objective - Vital Signs/Intake and Output Vital Signs (last 24 hours): Temp Pulse Resp BP Pulse Ox 98.3 F 72 20 116/75 95 11/24/17 09:00 11/24/17 09:00 11/24/17 09:00 11/24/17 09:00 11/24/17 09:00 - Medications Medications: Current Medications Acetaminophen (Tylenol 325mg Tab) 650 mg PO Q4 PRN PRN Reason: Pain, Mild (1-3) Last Admin: 11/24/17 10:16 Dose: 650 mg Metronidazole (Flagyl 500mg/100ml Ns) 100 mls @ 100 mls/hr IVPB Q8 [facility]A PRN Reason: Protocol Last Admin: 11/24/17 09:07 Dose: 100 mls/hr Ciprofloxacin (Cipro 400mg/200ml Dsw) 400 mg in 200 mls @ 200 mls/hr IVPB Q12 [facility] PRN Reason: Protocol Last Admin: 11/24/17 09:07 Dose: 200 mls/hr Lactated Ringer's (Lactated Ringer's) 1,000 mls @ 100 mls/hr IV .Q10H [facility] Last Admin: 11/24/17 10:17 Dose: Not Given Famotidine (Pepcid 20mg/50ml Premix) 40 mg in 100 mls @ 200 mls/hr IVPB DAILY [facility] Last Admin: 11/24/17 09:08 Dose: 200 mls/hr Lactobacillus Acidophilus (Bacid Acidophilus) 1 cap PO BID [facility] Last Admin: 11/24/17 09:05 Dose: 1 cap Morphine Sulfate (Morphine) 1 mg IVP Q4 PRN PRN Reason: Pain, moderate (4-7) Last Admin: 11/21/17 15:29 Dose: 1 mg Ondansetron HCl (Zofran Odt) 4 mg PO Q6H PRN PRN Reason: Nausea/Vomiting Last Admin: 11/22/17 22:40 Dose: 4 mg Sucralfate (Carafate Tab) 1 gm PO QID [facility] Last Admin: 11/24/17 09:06 Dose: 1 gm - Labs Labs: 11/22/17 08:12 11/22/17 08:12 PT 12.1 Seconds (9.8-13.1) 11/20/17 11:26 INR 1.1 (0.9-1.2) 11/20/17 11:26 APTT 28.6 Seconds (25.6-37.1) 11/20/17 11:26 - Constitutional Appears: Non-toxic, No Acute Distress - Head Exam Head Exam: ATRAUMATIC, NORMOCEPHALIC - Eye Exam Eye Exam: EOMI, PERRL. absent: Scleral icterus Pupil Exam: PERRL. absent: Miosis, Mydriatic - ENT Exam ENT Exam: Mucous Membranes Moist, Normal Oropharynx - Neck Exam Neck Exam: Full ROM, Normal Inspection - Respiratory Exam Respiratory Exam: Clear to Ausculation Bilateral. absent: Rales, Rhonchi, Wheezes - Cardiovascular Exam Cardiovascular Exam: RRR, +S1, +S2. absent: Gallop, Rubs - GI/Abdominal Exam GI & Abdominal Exam: Soft, Normal Bowel Sounds. absent: Distended, Firm, Guarding, Rigid, Tenderness, Organomegaly, Rebound - Extremities Exam Extremities Exam: Full ROM, Normal Inspection. absent: Pedal Edema - Neurological Exam Neurological Exam: Alert, Awake, Oriented x3 - Psychiatric Exam Psychiatric exam: Normal Affect, Normal Mood - Skin Skin Exam: Dry, Intact, Normal Color, Warm Assessment and Plan - Assessment and Plan (Free Text) Assessment: 52 year old male with no PMH presenting with abdominal pain. Active treatment of abdominal pain with CT A/P showing possible right-sided colitis of ascending colon to hepatic flexure. No prior EGD or colonoscopy. Plan: -POD1 (11/23/17) EGD - no acute pathology, gastritis -pending biopsies stomach and duodenum -PPI trial for epigastric discomfort -on cipro/Flagyl day 4 -complete 10-14 day course -advance diet as tolerated -outpatient follow up to discuss biopsy results and future colonoscopy to assess resolution of colitis and for colorectal cancer screening
--- NOTE | 2017-11-24 14:26 | CP.PCM.DIS ---
Provider - Provider Date of Admission: 11/22/17 09:29 Attending physician: Prasad Cabello MD Time Spent in preparation of Discharge (in minutes): 15 Diagnosis - Discharge Diagnosis (1) Colitis Status: Acute Hospital Course - Lab Results Lab Results: Most Recent Lab Values WBC 7.1 K/uL (4.8-10.8) 11/22/17 08:12 RBC 4.64 Mil/uL (4.40-5.90) 11/22/17 08:12 Hgb 13.8 g/dL (12.0-18.0) 11/22/17 08:12 Hct 40.0 % (35.0-51.0) 11/22/17 08:12 MCV 86.3 fl (80.0-94.0) 11/22/17 08:12 MCH 29.7 pg (27.0-31.0) 11/22/17 08:12 MCHC 34.4 g/dL (33.0-37.0) 11/22/17 08:12 RDW 13.3 % (11.5-14.5) 11/22/17 08:12 Plt Count 225 K/uL (130-400) 11/22/17 08:12 MPV 6.5 fl (7.2-11.7) L 11/22/17 08:12 Neut % (Auto) 62.4 % (50.0-75.0) 11/22/17 08:12 Lymph % (Auto) 24.6 % (20.0-40.0) 11/22/17 08:12 Morrill % (Auto) 8.5 % (0.0-10.0) 11/22/17 08:12 Eos % (Auto) 4.0 % (0.0-4.0) 11/22/17 08:12 Baso % (Auto) 0.5 % (0.0-2.0) 11/22/17 08:12 Neut # (Auto) 4.4 K/uL (1.8-7.0) 11/22/17 08:12 Lymph # (Auto) 1.8 K/uL (1.0-4.3) 11/22/17 08:12 Morrill # (Auto) 0.6 K/uL (0.0-0.8) 11/22/17 08:12 Eos # (Auto) 0.3 K/uL (0.0-0.7) 11/22/17 08:12 Baso # (Auto) 0.0 K/uL (0.0-0.2) 11/22/17 08:12 PT 12.1 Seconds (9.8-13.1) 11/20/17 11:26 INR 1.1 (0.9-1.2) 11/20/17 11:26 APTT 28.6 Seconds (25.6-37.1) 11/20/17 11:26 Sodium 141 mmol/l (132-148) 11/22/17 08:12 Potassium 3.9 MMOL/L (3.6-5.0) 11/22/17 08:12 Chloride 101 mmol/L (98-107) 11/22/17 08:12 Carbon Dioxide 32 mmol/L (22-30) H 11/22/17 08:12 Anion Gap 12 (10-20) 11/22/17 08:12 BUN 13 mg/dl (9-20) 11/22/17 08:12 Creatinine 1.0 mg/dl (0.8-1.5) 11/22/17 08:12 Est GFR ( Amer) > 60 11/22/17 08:12 Est GFR (Non-Af Amer) > 60 11/22/17 08:12 POC Glucose (mg/dL) 135 mg/dL (65-110) H 11/20/17 11:14 Random Glucose 104 mg/dL (75-110) 11/22/17 08:12 Hemoglobin A1c 5.5 % (4.2-6.5) 11/22/17 08:12 Lactic Acid 0.8 MMOL/L (0.7-2.1) 11/23/17 14:30 Calcium 8.8 mg/dL (8.4-10.2) 11/22/17 08:12 Total Bilirubin 0.8 mg/dl (0.2-1.3) 11/22/17 08:12 AST 28 U/L (17-59) 11/22/17 08:12 ALT 38 U/L (21-72) 11/22/17 08:12 Alkaline Phosphatase 69 U/L (38-126) 11/22/17 08:12 Total Protein 6.9 G/DL (6.3-8.2) 11/22/17 08:12 Albumin 3.7 g/dL (3.5-5.0) 11/22/17 08:12 Globulin 3.2 gm/dL (2.2-3.9) 11/22/17 08:12 Albumin/Globulin Ratio 1.2 (1.0-2.1) 11/22/17 08:12 Lipase 46 U/L (23-300) 11/20/17 11:26 Carcinoembryonic Ag 1.6 ng/mL (0-3.0) 11/22/17 10:48 Urine Color Yellow (YELLOW) 11/20/17 18:57 Urine Clarity Clear (Clear) 11/20/17 18:57 Urine pH 6.0 (5.0-8.0) 11/20/17 18:57 Ur Specific [place] 1.059 (1.003-1.030) H 11/20/17 18:57 Urine Protein Negative mg/dL (NEGATIVE) 11/20/17 18:57 Urine Glucose (UA) Neg mg/dL (Normal) 11/20/17 18:57 Urine Ketones Negative mg/dL (NEGATIVE) 11/20/17 18:57 Urine Blood Negative (NEGATIVE) 11/20/17 18:57 Urine Nitrate Negative (NEGATIVE) 11/20/17 18:57 Urine Bilirubin Negative (NEGATIVE) 11/20/17 18:57 Urine Urobilinogen 0.2-1.0 mg/dL (0.2-1.0) 11/20/17 18:57 Ur Leukocyte Esterase Neg Damon/uL (Negative) 11/20/17 18:57 Urine Opiates Screen Positive (NEGATIVE) H 11/20/17 18:57 Urine Methadone Screen Negative (NEGATIVE) 11/20/17 18:57 Ur Barbiturates Screen Negative (NEGATIVE) 11/20/17 18:57 Ur Phencyclidine Scrn Negative (NEGATIVE) 11/20/17 18:57 Ur Amphetamines Screen Negative (NEGATIVE) 11/20/17 18:57 U Benzodiazepines Scrn Negative (NEGATIVE) 11/20/17 18:57 U Oth Cocaine Metabols Negative (NEGATIVE) 11/20/17 18:57 U Cannabinoids Screen Negative (NEGATIVE) 11/20/17 18:57 Alcohol, Quantitative < 10 mg/dl (0-10) 11/20/17 11:26 C. difficile Ag & Toxin Negative (NEGATIVE) 11/22/17 15:40 - Hospital Course Hospital Course: 52 y/o man w/ no pmh was admitted for acute colitis. The patient had colitis seen on CT abdomen. Patient was started on antibiotics and made NPO. Patient slowly advanced diet. Patient seen by GI and had endoscopy doen which showed gastritis. Patient reports improvement with pain and is tolerating bland diet. Patient has been seen, examined, and deemed medically fit for discharge home. The patient is discharged w/ ciprofloxacin PO, metronidazole PO, and pepcid PO. The patient is to follow up w/ PMD and GI in 1-2 weeks. Discharge Exam - Head Exam Head Exam: ATRAUMATIC, NORMAL INSPECTION, NORMOCEPHALIC - Eye Exam Eye Exam: Normal appearance - ENT Exam ENT Exam: Mucous Membranes Moist - Neck Exam Neck exam: Full Rom - Respiratory Exam Respiratory Exam: Clear to PA & Lateral. absent: Accessory Muscle Use, Decreased Breath Sounds, Rales, Rhonchi, Wheezes, Respiratory Distress - Cardiovascular Exam Cardiovascular Exam: REGULAR RHYTHM, RRR. absent: Tachycardia - GI/Abdominal Exam GI & Abdominal Exam: Normal Bowel Sounds, Soft, Tenderness (mild epigastric). absent: Distended, Guarding, Rebound - Extremities Exam Extremities exam: normal inspection - Neurological Exam Neurological exam: Alert, Normal Gait, Oriented x3 - Skin Skin Exam: Dry, Intact, Normal Color, Warm Discharge Plan - Discharge Medications Prescriptions: Ciprofloxacin HCl [Cipro] 500 mg PO BID #20 tablet Famotidine [Pepcid] 40 mg PO DAILY #30 tablet Metronidazole [Flagyl] 500 mg PO TID #30 tablet - Follow Up Plan Condition: FAIR Disposition: HOME/ ROUTINE Instructions: Inflammatory Bowel Disease (DC) Additional Instructions: follow up with your primary MD 1 week follow up with Dr. Telles 1-2 weeks Referrals: Ulysses Blue MD [Staff Provider] - Jamie Telles MD, PhD [Staff Provider] -
[2017-11-25 17:06] VITALS: O2SAT 96
== END 2017-11-24 13:12 | disposition home or self-care (01) | DRG 392 ==
LOC: H.ER 10:49 → H.ERHOLD 14:43 → H.MEDSURG1 16:42 → OBSVTOIN 11-22 09:29
PROVIDERS: ADMIT Family Medicine; ATTEND Family Medicine
PROC: 0DB68ZX Excision of Stomach, Via Natural or Artificial Opening Endoscopic, Diagnostic (ICD-10-PCS; principal; 2017-11-22)
DX: K52.9 Noninfective gastroenteritis and colitis, unspecified (principal); K31.89 Other diseases of stomach and duodenum; Z90.49 Acquired absence of other specified parts of digestive tract; R73.9 Hyperglycemia, unspecified; K29.70 Gastritis, unspecified, without bleeding; E78.5 Hyperlipidemia, unspecified; K76.0 Fatty (change of) liver, not elsewhere classified; Z87.442 Personal history of urinary calculi